=== PATIENT | male | born 1960 | race African-American/Black ===

== ENCOUNTER 2024-02-12 12:18 | Emergency (ER) | payer SELFPAY ==
[~2024-02-12] VITALS: Ht 182.9 cm; Wt 108.9 kg
[2024-02-12 12:42] VITALS: PULSE 96; RESP 18; TEMP 98.2; O2SAT 98
[2024-02-12] MEDS ORDERED: PREDNISONE20 MG PO (13:31)
[2024-02-12] MEDS ORDERED: ULTRAM 50MG50 MG PO (13:31)
[2024-02-12] MEDS ORDERED: METHOCARBAMOL750 MG PO (13:31)
== END 2024-02-12 13:45 | disposition home or self-care (01) ==
LOC: ER 13:11
DX: M54.42 Lumbago with sciatica, left side (principal); I10 Essential (primary) hypertension; E11.9 Type 2 diabetes mellitus without complications; D86.9 Sarcoidosis, unspecified; G47.30 Sleep apnea, unspecified; F17.210 Nicotine dependence, cigarettes, uncomplicated
CPT/HCPCS: 99283